=== PATIENT | female | born 1965 | race Two or more races ===

== ENCOUNTER 2025-01-04 06:50 | Outpatient (CLI) | payer MEDICAID ==
[~2025-01-04] VITALS: Ht 154.9 cm; Wt 84.4 kg
[2025-01-04] MEDS: REGADENOSON 0.4 MG/5 ML SYRG IV ONE ×2 (09:03→09:04)
--- NOTE | 2025-01-08 10:05 | DVHSR ---
APPROVED REPORT Exam: Nuclear Stress Test Indication: Chest pain BMI: 0 Medical History Medical History: HTN, HLD Allergies: Morphine Stress Test Details Stress Test: Pharmacologic stress testing performed using 0.4 mg of regadenoson per 5 mL given IV ov er 10 seconds. HR Resting HR: 60 bpmMax Heart Rate (APMHR): 161.505577 bpm Max HR Achieved: 91 bpmTarget HR (85% APMHR): 136.069503 bpm % of APMHR: 56.52 Recovery HR: 82 bpm BP Resting BP: 143/78 mmHg Recovery BP: 130/70 mmHg ECG Resting ECG: Sinus Rhythm Clinical Reason for Termination: Completed protocol Nurse Comments Recieved pt. from Crude [facility]. A/Ox4 on RA. Connected to monitoring coordinator, VS stable. PIV flushes well. Reviewed POC. Pt. verbalized understanding of procedure including risks and side ef fects, agrees for stress testing. Lexiscan stress test performed per protocol. [employer] administered Cardiolite. Pt. tolerated well . Pt. stable, no change on exam. VS returned to baseline. Transferred to [facility]ude [facility] via wheelchair w/ te ch. Stress ECG Conclusion lvef 67% normal perfusion scan NM EXAM: Myocardial Perfusion REST/STRESS Imaging Protocol: Rest Tc-99m/Stress Tc-99m 1 day Resting Data Rest SPECT myocardial perfusion imaging was performed in supine position 45 minutes following the int ravenous injection of 10.6 mCi of Tc-99m Sestamibi. Time of rest injection: 07:48 Date: 01/04/2025 Time of rest imagin:33 Date: 01/04/2025 Administration Route: IV Administration Site: Right Arm Pharmacologic Stress Pharmacologic stress test was performed by injecting Regadenoson 0.4 mg IV push followed by the intra venous injection of 32.0 mCi of Tc-99m Sestamibi. Time of stress injection: 09:05 Date: 01/04/2025 Time of stress imagin:05 Date: 01/04/2025 Administration Route: IV Administration Site: Right Arm Gated Stress SPECT was performed 60 minutes after stress injection. The images were gated to evaluate regional wall motion and calculate left ventricular ejection fracti on. Stress only was performed in the Supine position. Nuclear Conclusion Nuclear Findings: negative for ischemia lvef 67% normal perfusion scan
== END 2025-01-04 17:00 | disposition home or self-care (01) ==
LOC: XYW 06:50
PROVIDERS: ATTEND Specialist
DX: R07.9 Chest pain, unspecified (principal); I10 Essential (primary) hypertension; R06.02 Shortness of breath; E78.5 Hyperlipidemia, unspecified; Z88.5 Allergy status to narcotic agent
CPT/HCPCS: 78452; 93017; A9500; J2785